=== PATIENT | female | born 1990 | race American Indian/Alaskan Native ===

== ENCOUNTER 2024-01-13 15:25 | Inpatient (IN) | payer OTHER ==
[~2024-01-13] VITALS: Ht 165.1 cm; Wt 103.5 kg
[2024-01-13 17:00] VITALS: BP 115/71; PULSE 60; RESP 18; TEMP 97.5; O2SAT 95
[2024-01-13 17:04] VITALS: BP 115/71; PULSE 60; RESP 18; TEMP 97.6; O2SAT 95; O2SAT 96
[2024-01-13] MEDS: SODIUM CHLORIDE 0.9% 1,000 ML IV SCH (17:30)
[2024-01-13] MEDS ORDERED: ACETAMINOPHEN 325 MG TAB PO PRN (17:30)
[2024-01-13] MEDS ORDERED: MORPHINE SULFATE INJ 2 MG/ml SYRG IV PRN (17:30)
[2024-01-13] MEDS ORDERED: ONDANSETRON HCL 4 MG/2 ML VIAL IV PRN (17:30)
[2024-01-13 20:54] LABS: Basophils # (auto) 0 10 ^3/uL (0-0.2); Basophils % (auto) 0.5 % (0.0-2.0); Eosinophils # (auto) 0.1 10 ^3/uL (0-0.8); Eosinophils % (auto) 0.8 % (0.0-7.0); Hemoglobin 13.6 g/dL (12.2-16.2); Lymphocytes # (auto) 2.7 10 ^3/uL (0.4-5.4); Lymphocytes % (auto) 35.4 % (10.0-50.0); Mean Corpuscular Hemoglobin 29.3 pg (28.0-32.0); Mean Corpuscular Hgb Conc. 33.9 g/dL (32.0-36.0); Mean Corpuscular Volume 86.6 fL (80.0-100.0); Monocytes # (auto) 0.4 10 ^3/uL (0-1.3); Monocytes % (auto) 4.8 % (0.0-12.0); Neutrophils # (auto) 4.5 10 ^3/uL (1.6-8.6); Neutrophils % (auto) 58.5 % (37.0-80.0); Nucleated Red Blood Cells % 0.1 %; Red Blood Cells 4.62 10^6/uL (4.0-5.20); Red Cell Distribution Width 13.3 % (11.8-14.3); White Blood Cell 7.7 10^3/uL (4.4-10.8)
[2024-01-13 21:00] VITALS: BP 120/63; PULSE 60; RESP 16; TEMP 97.7; O2SAT 95
[2024-01-13 21:06] LABS: Alanine Aminotransferase 44 U/L (7-40); Albumin 4.2 g/dL (3.2-4.8); Alkaline Phosphatase 54 U/L (46-116); Anion Gap 8 (5-15); Aspartate Aminotransferase 21 U/L (13-40); BUN/Creatinine Ratio 9.1 (10.0-20.0); Bilirubin, Total 0.5 mg/dL (0.2-1.0); Blood Urea Nitrogen 6 mg/dL (9-23); Calcium 9.3 mg/dL (8.7-10.4); Carbon Dioxide 23 mmol/L (20-30); Chloride 108 mmol/L (98-107); Glucose 105 mg/dL (74-106); Potassium 3.7 mmol/L (3.5-5.1); Sodium 139 mmol/L (136-145); Total Protein 6.8 g/dL (5.7-8.2)
[2024-01-14 01:00] VITALS: BP 94/49; PULSE 61; RESP 16; TEMP 97.9; O2SAT 95
[2024-01-14 05:00] VITALS: BP 93/41; PULSE 70; RESP 16; TEMP 98.2; O2SAT 93
[2024-01-14 07:29] LABS: Basophils # (auto) 0 10 ^3/uL (0-0.2); Basophils % (auto) 0.3 % (0.0-2.0); Eosinophils # (auto) 0.1 10 ^3/uL (0-0.8); Eosinophils % (auto) 1.2 % (0.0-7.0); Hematocrit 39.5 % (36.0-46.0); Hemoglobin 13.4 g/dL (12.2-16.2); Lymphocytes # (auto) 2.2 10 ^3/uL (0.4-5.4); Lymphocytes % (auto) 36.5 % (10.0-50.0); Mean Corpuscular Hemoglobin 29.8 pg (28.0-32.0); Mean Corpuscular Volume 87.7 fL (80.0-100.0); Monocytes # (auto) 0.3 10 ^3/uL (0-1.3); Monocytes % (auto) 5.1 % (0.0-12.0); Neutrophils # (auto) 3.4 10 ^3/uL (1.6-8.6); Neutrophils % (auto) 56.9 % (37.0-80.0); Nucleated Red Blood Cells % 0.1 %; Red Blood Cells 4.51 10^6/uL (4.0-5.20); Red Cell Distribution Width 13.5 % (11.8-14.3); White Blood Cell 5.9 10^3/uL (4.4-10.8)
[2024-01-14 07:51] LABS: Alanine Aminotransferase 38 U/L (7-40); Albumin 3.9 g/dL (3.2-4.8); Alkaline Phosphatase 50 U/L (46-116); Anion Gap 3 (5-15); Aspartate Aminotransferase 19 U/L (13-40); BUN/Creatinine Ratio 8.6 (10.0-20.0); Bilirubin, Total 0.4 mg/dL (0.2-1.0); Blood Urea Nitrogen 6 mg/dL (9-23); Calcium 8.8 mg/dL (8.7-10.4); Carbon Dioxide 27 mmol/L (20-30); Chloride 110 mmol/L (98-107); Glucose 114 mg/dL (74-106); Potassium 4.2 mmol/L (3.5-5.1); Sodium 140 mmol/L (136-145); Total Protein 6.6 g/dL (5.7-8.2)
[2024-01-14 09:00] VITALS: BP 114/62; PULSE 65; RESP 18; TEMP 97.8; O2SAT 92
[2024-01-14 13:00] VITALS: BP 117/64; PULSE 60; RESP 18; TEMP 97.8; O2SAT 96
[2024-01-14] MEDS: HYDROcodone-ACET 5/325MG TAB PO PRN (13:40)
[2024-01-14 16:40] VITALS: BP 118/76; PULSE 67; RESP 18; TEMP 97.7; O2SAT 98
[2024-01-14 18:29] LABS: INR 1.08 (0.9-1.15); Partial Thromboplastin Time 30.2 SEC (24.5-34.5); Prothrombin Time 11.4 sec (9.3-11.8)
[2024-01-14 21:00] VITALS: BP 114/69; PULSE 64; RESP 17; TEMP 98.1; O2SAT 96
[2024-01-15] VITALS (7 sets, daily range): BP systolic 101–115; BP diastolic 48–66; PULSE 61–98; RESP 16–18; TEMP 97.4–98.4; O2SAT 91–98
[2024-01-15] MEDS ORDERED: HYDROmorphone HCL 2 MG/ML VL/or syr IV PRN (06:45)
[2024-01-15] MEDS ORDERED: KETOROLAC TROMETH 30 MG/ML 1ML VIAL IV ONE (06:45)
[2024-01-15 06:53] LABS: Urine Bacteria None Seen /hpf (None Seen)
[2024-01-15] MEDS: ceFAZolin 2 GM/D5W50ml 50 ML IV ONE (06:55)
[2024-01-15] MEDS: LIDOCAINE W/ EPINEPHRINE 1% 20ML VIAL ONE (06:55)
[2024-01-15] MEDS: BUPIVACAINE HCL 0.25% P/F 10 ML VIAL ONE (06:55)
[2024-01-15] MEDS ORDERED: MIDAZOLAM HCL 2MG/2ML 2ml VIAL (1mg/ml) ONE (07:15)
[2024-01-15] MEDS ORDERED: fentaNYL CITRATE 100 MCG/2 ML VL ONE (07:15)
[2024-01-15] MEDS ORDERED: PROPOFOL 10 MG/ML 20 ML IV ONE (07:18)
[2024-01-15] MEDS ORDERED: ROCURONIUM 10MG/ML 10ML VIAL IV ONE (07:18)
[2024-01-15] MEDS: SUCCINYLCHOLINE CHLORIDE 20 MG/ML 10ML VIAL IV ONE (07:24)
[2024-01-15] MEDS ORDERED: DexAMETHasone SOD PHOS 10MG/1ML VIAL INJ ONE (07:31)
[2024-01-15] MEDS ORDERED: ONDANSETRON HCL 4 MG/2 ML VIAL ONE (07:31)
[2024-01-15] MEDS ORDERED: KETOROLAC TROMETH 30 MG/ML 1ML VIAL ONE (07:31)
[2024-01-15 07:34] LABS: Urine Blood Negative /uL (Negative); Urine Clarity Clear (Clear); Urine Color Colorless (Yellow); Urine Protein, UAD Negative (Negative); Urine Specific Gravity 1.009 (1.001-1.035); Urine Urobilinogen Normal (Negative); Urine WBC 1 /hpf (0 - 5); Urine pH 6.5 (5.0-9.0)
[2024-01-15] MEDS ORDERED: NEOSTIGMINE 1 MG/ML INJ (10mg/10ML VIAL) ONE (07:44)
[2024-01-15] MEDS ORDERED: GLYCOPYRROLATE 0.2 MG/ML 1ML VIAL ONE (07:44)
[2024-01-15] MEDS ORDERED: SUGAMMADEX 200mg/2ml Vial (100MG/ML) IV ONE (08:07)
[2024-01-15] MEDS ORDERED: HYDROmorphone HCL 2 MG/ML VL/or syr ONE (08:19)
[2024-01-15] MEDS: fentaNYL CITRATE 100 MCG/2 ML VL IV PRN (08:42)
[2024-01-15] MEDS: cefTRIAXone 1GM/50ML D5W 50 ML IV SCH (09:00)
[2024-01-15] MEDS: PANTOPRAZOLE 40 MG/10 ML VIAL INJ IV SCH (11:06)
[2024-01-15] MEDS: HYDROmorphone HCL 2 MG/ML VL/or syr IV PRN (11:07)
[2024-01-15] MEDS: D5W/SOD CHL 0.45%/KCL 20MEQ 1,000 ML IV SCH (11:07)
[2024-01-15] MEDS: ACETAMINOPHEN/CODEINE#3 (300/30mg) TAB PO PRN (17:47)
[2024-01-15] MEDS: DOCUSATE SOD 100 MG CAP PO PRN (17:47)
[2024-01-15] MEDS: ONDANSETRON HCL 4 MG/2 ML VIAL IV PRN (17:47)
[2024-01-16 01:00] VITALS: BP 102/51; PULSE 64; RESP 17; TEMP 98.4; O2SAT 95
[2024-01-16 05:00] VITALS: BP 103/55; PULSE 66; RESP 18; TEMP 98; O2SAT 97
[2024-01-16 05:33] LABS: Basophils # (auto) 0 10 ^3/uL (0-0.2); Basophils % (auto) 0.1 % (0.0-2.0); Eosinophils # (auto) 0 10 ^3/uL (0-0.8); Eosinophils % (auto) 0.1 % (0.0-7.0); Hematocrit 36.4 % (36.0-46.0); Hemoglobin 12.3 g/dL (12.2-16.2); Lymphocytes # (auto) 2.4 10 ^3/uL (0.4-5.4); Lymphocytes % (auto) 20.8 % (10.0-50.0); Mean Corpuscular Hemoglobin 29.2 pg (28.0-32.0); Mean Corpuscular Hgb Conc. 33.7 g/dL (32.0-36.0); Mean Corpuscular Volume 86.6 fL (80.0-100.0); Monocytes # (auto) 0.6 10 ^3/uL (0-1.3); Monocytes % (auto) 5.6 % (0.0-12.0); Neutrophils # (auto) 8.5 10 ^3/uL (1.6-8.6); Neutrophils % (auto) 73.4 % (37.0-80.0); Nucleated Red Blood Cells % 0.1 %; Red Blood Cells 4.21 10^6/uL (4.0-5.20); Red Cell Distribution Width 13.2 % (11.8-14.3); White Blood Cell 11.5 10^3/uL (4.4-10.8)
[2024-01-16 08:19] VITALS: BP 103/54; PULSE 66; RESP 18; TEMP 97.9; O2SAT 98
[2024-01-16 13:07] VITALS: BP 95/53; PULSE 64; RESP 17; TEMP 97.9; O2SAT 97
[2024-01-16] MEDS ORDERED: DOCU-94 PO (14:48)
[2024-01-16] MEDS ORDERED: NAP500T PO (14:48)
[2024-01-16] MEDS ORDERED: CEPH250C PO (14:48)
[2024-01-16 15:00] VITALS: BP 109/60; PULSE 65; RESP 16
== END 2024-01-16 17:16 | disposition home or self-care (01) | DRG 419 ==
LOC: UNDOADMIN 16:19 → WEST WING 16:19
PROVIDERS: ADMIT Nurse Practitioner Family; ATTEND Internal Medicine
PROC: 0FT44ZZ Resection of Gallbladder, Percutaneous Endoscopic Approach (ICD-10-PCS; principal; 2024-01-15 07:16)
DX: K80.64 Calculus of gallbladder and bile duct with chronic cholecystitis without obstruction (principal)
CPT/HCPCS: 36415; 74181; 76705; 80053; 81001; 82247; 84702; 85025; 85610; 85730; 86850; 86900; 86901; 87081; C9113; G0378; J0330; J1100; J1885; J2250; J2405; J2704; J3490